=== PATIENT | female | born 1970 | race Caucasian/White ===

== ENCOUNTER → 2017-07-13 | Outpatient (CLI) | payer BC ==
[~2017-07-13] MED LIST: CHOL100010 PO; FERR1TAB23 PO; IBUP-1050 PO; MULT-506 PO; NAPR1TAB9 PO; NATURAL PROGESTERONE TOP
--- NOTE | 2017-07-13 09:49 | DIAGNOSTIC IMAGING REPORT ---
LEFT FOOT 3 VIEWS CLINICAL HISTORY: Left foot pain. No reported history of trauma. FINDINGS: 3 views of the left foot are obtained. No prior studies are available for comparison at the time of dictation. The skeletal structures are well mineralized. No fracture is seen. Mild arthritic change is noted at the first metatarsophalangeal joint. There is a large plantar calcaneal enthesophyte. The overlying soft tissues are within normal limits. IMPRESSION: No acute bony abnormality is seen in the left foot. Electronically signed by: Saúl Louis M.D. 07/13/2017 9:48 AM Dictated Date/Time: 07/13/2017 9:47 AM
== END | disposition home or self-care (01) ==
LOC: C.RADBC 09:00
PROVIDERS: ATTEND Family Medicine
DX: M79.672 Pain in left foot (principal)